=== PATIENT | female | born 1985 | race Hispanic/Latino ===

== ENCOUNTER 2018-07-01 08:15 | Observation (INO) | payer OTHER ==
[2018-06-24 19:17] VITALS: BMI 22.2
[2018-07-01] MEDS ORDERED: Lactated Ringer's 1,000 ML IV ONE ×5 (09:10→15:00)
[2018-07-01 10:38] LABS: BASO % 0.8 % (0.0-2.0); EOS # 0.1 K/uL (0.0-0.7); EOS % 1.4 % (0.0-4.0); HEMOGLOBIN 10.2 g/dL (12.0-16.0); LYMPH # 1.3 K/uL (1.0-4.3); LYMPH % 22.5 % (20.0-40.0); MEAN CELL VOLUME 98.4 fl (81.0-99.0); MEAN CORPUSCULAR HEMOGLOBIN 33.3 pg (27.0-31.0); MEAN CORPUSCULAR HGB CONC 33.9 g/dL (33.0-37.0); MEAN PLATELET VOLUME 10.8 fl (7.2-11.7); MONO # 0.4 K/uL (0.0-0.8); MONO % 6.7 % (0.0-10.0); NEUT # 3.9 K/uL (1.8-7.0); NEUT % 68.6 % (50.0-75.0); RBC 3.06 Mil/uL (3.80-5.20); RED CELL DISTRIBUTION WIDTH 12.5 % (11.5-14.5); WHITE BLOOD COUNT 5.8 K/uL (4.8-10.8)
[2018-07-01] MEDS ORDERED: Rocuronium 10 mg/ml (5 ml) ONE (10:48)
[2018-07-01] MEDS ORDERED: Midazolam 2 MG/2 ML VIAL ONE (10:48)
[2018-07-01] MEDS ORDERED: Propofol 10 mg/ml Inj (20 ML) ONE (10:48)
[2018-07-01] MEDS ORDERED: ePHEDrine 50 mg/ml Inj ONE (10:49)
[2018-07-01] MEDS ORDERED: Succinylcholine Chloride 20 mg/ml Syr (5 ml) IV ONE (10:49)
[2018-07-01] MEDS: Bupivacaine 0.5% Inj(30mL) ONE ×2 (11:35→11:45)
[2018-07-01] MEDS ORDERED: Dexamethasone 4 mg/1 ml ONE (13:28)
[2018-07-01] MEDS ORDERED: Neostigmine 1:1000 (1 mg/ml) Inj ONE (13:28)
[2018-07-01] MEDS ORDERED: Oxycodone/Acetaminophen 5/325 mg Tab PO PRN (13:49)
[2018-07-01] MEDS ORDERED: DiphenhydrAMINE 50 mg/ml Inj IVP PRN (13:51)
[2018-07-01] MEDS ORDERED: Droperidol 2.5 mg/ml Inj IVP PRN (13:51)
[2018-07-01] MEDS ORDERED: HYDROmorphone 0.5 mg/0.5 ml ISec IVP PRN (13:57)
[2018-07-01] MEDS ORDERED: Lactated Ringer's 1,000 ML IV SCH (14:00)
[2018-07-01] MEDS: HYDROmorphone 0.5 mg/0.5 ml ISec IVP PRN ×3 (14:00→14:20)
--- NOTE | 2018-07-01 23:35 | OP ---
PROCEDURE DATE: 07/01/2018 SURGEON: Maurisio Garcia MD FORESTRY HUNTER: Randy Avila MD ANESTHESIOLOGIST: Dilma Franco MD TYPE OF ANESTHESIA: General endotracheal. PREOPERATIVE DIAGNOSES: 1. History of pelvic endometriosis. Stage 4 POSTOPERATIVE DIAGNOSES: 1. History of pelvic endometriosis. Stage 4 PROCEDURES PERFORMED: 1. Exam under anesthesia. 2. Video assisted hysteroscopy. 3. Cystoscopy. 4. Bilateral ureteral catheterization and injection of IC-Green dye. 5. Robotic da Jimmy operative laparoscopy. 6. Treatment of endometriosis. 7. Excision of endometriosis. 8. Bilateral ureterolysis. 9. Left ovariolysis. 10 Pelvic endometriosis 11.Rectal endometriosis COMPLICATIONS: None. SAMPLES SENT: Left Uterosacral l endometriosis. Left periureteral endometriosis. Right periureteral endometriosis. right, Rectal endometriosis, anterior. Anterior bladder right endometriosis Right round ligament LEft ovarian endometriosis Perisigmoid endometriosis left,, Rectal endometriosis, anterior. right tubal remnant right uterine artery endometriosis appendix INDICATION FOR THE PROCEDURE AND CONSENT: The patient had a long history of pelvic pain, dysmenorrhea, dyspareunia, abdominal pain, and bladder pain. The patient had been thoroughly evaluated and counseled regarding the pros and cons of the procedure, the reasonable alternatives, and possible complications. She understood and accepted the risks involved. Literature was provided to the patient. The patient was understanding and given her history and per surgical exam, she was at high risk in an average patient. She accepted all the risks involved, and all the questions had been answered to her satisfaction. FINDINGS OF SURGERY: Genitalia: Normal external genitalia, cervix without lesion and polyps. Hysteroscopy: Hysteroscopy shows a clear uterine cavity with no polyps or masses noticed. Cystoscopy: The cystoscopy was performed to rule out endometriosis and also any interstitial cystitis and also injury. The bladder was normal with no evidence of stone, trigonitis, or cystitis. A positive jet flow was identified in both ureters. Laparoscopy: The upper abdomen appeared to be normal. Gallbladder was normal. Liver edges appeared to be normal. Ascending colon and transverse were normal. There was evidence of adhesions, fibrosis, and endometriosis of the rectovaginal and pelvic sidewalls. The appendix appeared to be . Both fallopian tubes appeared to be patent, although there was evidence of inflammation on the serosal surface of both fallopian tubes, and there was slight conglutination of both fimbriated ends although they both appeared to be functional. There was also evidence of mild hydroureters. DESCRIPTION OF THE PROCEDURE: Initiation of the case: After adequate anesthesia was obtained, the patient was placed in the dorsal lithotomy position, and with extreme care, placement of the patient with hyperextension and hyperflexing of the hips. At this point, the patient was prepped and draped. The surgeon was gowned and gloved. A timeout was taken according to the hospital procedure and the procedure was started. At this point, we performed cystoscopy, bilateral ureteral catheterization. A cystoscope was inserted into the bladder under direct visualization and the bladder was visualized. The bladder was free of lesions and tumors. There was no evidence of interstitial cystitis, and there was only mild amount of trigonitis. At this point, both ureters were identified and appeared to be in their normal anatomical position. At this point, utilizing an open 5-Lao open-ended catheter, the left ureter was catheterized all the way to the distal ureter, and 5 mL of IC-Green was injected into this ureter. Similarly, the contralateral ureter was catheterized all the way to the distal ureter, and 5 mL of IC-Green was injected into the distal ureter. At this point, the stents were removed, and the cystoscope was removed, and the 16-Lao Rose was inserted into the bladder. At this point, we proceeded with a hysteroscopy. A speculum was placed into vagina, and the anterior lip of the cervix was grasped. The cervix was dilated, and a hysteroscope was inserted into the cavity. The cavity appeared to be of normal size with no evidence of polyps, cysts, adenomyosis, or fibroids. At this point, we proceeded with placement of a trocar and docking of the da Jimmy Xi robot. The surgeon was re-gowned and gloved, and open laparoscopy was performed by making incision in the umbilicus and the fascia was incised. The peritoneum was entered in a blunt fashion, and the cannula was inserted under direct visualization. The abdomen was insufflated, and under direct visualization, three additional ports were inserted in the left upper quadrant, left mid quadrant, and right upper quadrant. At this point, the da Jimmy Xi robot was brought into the field and docked, and the instruments were inserted under direct visualization. All this with extreme care not to injure the bowel or another area. As per dictation, the upper abdomen appeared to be normal with no evidence of any lesions. At this point, we proceeded with a left ureterolysis. The ureter appeared to be dilated and was clearly identified utilizing IC-Green fluorescent technology. Anesthesia was made in the peritoneum at the top of the pelvic brim, and the incision was then carried down all the way opening the peritoneum all the way down from the pelvic brim, all the way down to the ovarian fossa, extending the incision below the ovary. It was a progressive dissection where the ureter was progressively lateralized and peritoneum was medialized, thus freeing the ureter all the way down to the cross of the uterine vessels. After this was done, the ureter was freed and lateralized, and a larger peritoneum which had been opened, was excised, and sent to pathology. At this point, with the aid of very slow process, I was able to elevate the ovary and proceed with ovariolysis. At this point, we proceeded with a left ovariolysis. The left ovary was adherent to the posterior aspect of the uterus. It was gently dissected in a step by step way. It was peeled off, the ovarian fossa, andan area of extensive fibrosis and endometriosis was exposed. At this point, we proceeded with a right ureterolysis. The ureter was identified again utilizing fluorescent technology on the right hand side and retroperitoneal space was entered, and a full dissection was performed,entering the retroperitoneal space and dissecting the ureter, removing the ureter laterally and the peritoneum medially. A full dissection was performed all the way down to the ovarian fossa and the crossing of the uterine arteries. An area of peritoneum containing endometriosis was dissected and sent to Pathology. At this point, we proceeded with treatment of endometriosis and excision of endometriosis. On the left hand side, fibrosis, especially in the left ovarian fossa was excised. In a very progressive step by step fashion, we dissected off fibrosis containing endometriosis and freed up the whole area. The ureters which had been lateralized. Areas of fibrosis and endometriosis were also identified in the posterior cul-de-sac and in the rectovaginal space which was also affected with endometriosis and fibrosis. At this point, we proceeded with the excision of perirectal endometriosis. The rectovaginal area had significant fibrosis and additional endometriosis was dissected from the posterior aspect of the uterus, and the rectovaginal space was entered at the level of the peritoneal reflection. All this done making sure that no damage to the rectum was performed. At this point, endometriosis was also excised from the right uterosacral area which also was affected by fibrosis and endometriosis. At this point, it was checked for hemostasis and appeared to be excellent. Both fallopian tubes were in good condition and patent. At this point we proceeded with destruction of inflammatory areas utilizing the j-plasma energy device. At this point the console was handed over to Dr. Avila from General surgery who proceeded with excision of rectal endometriosis and appendectomy procedure. He will dictate that separately. After he was done we checked for hemostasis and organ integrity and all was normal. At this point, the da Jimmy Xi robot was removed. The abdomen was desufflated, and the incisions were closed in layers with 0 PDS for the fascia and 4-0 Monocryl for the skin. At the end of the procedure, all tips and instrument counts were correct. The patient tolerated the procedure well and was taken to the recovery room in excellent condition. Jose BRYSON, Maurisio HERNANDEZ
--- NOTE | 2018-07-01 23:47 | OP ---
OPERATIVE REPORT -Operative Report Date of Procedure: 07/01/2018 Surgeon: Randy Avila MD Coordinator Of Library Services: Maurisio Garcia MD Anesthesiologist: Dilma Franco MD Anesthesia: General Endo Pre-op Diagnosis: abdominal pain Post-op Diagnosis: same Operative Findings: as above Procedure/Operation Description: 1-Excision rectal endometriosis x3. 2- Appendectomy. Brief History: This 32 year old woman was already brought to the operating room by Dr. Garcia and intraoperative surgical consultation was requested for the appendix and intestinal involvement. Description of the Procedure: The patient was already brought to the operating room by Dr. Garcia (separate dictation). After taking control of the robotic console the rectal lesion was examined under videoscopy and with electrocautery the lesion was incised circumferentially with electrocautery and with blunt and sharp dissection was excise en-bloc and sent to pathology for analysis. The remaining 2 lesions of the rectum were excised in a similar manner, appropriately marked and sent to pathology as separate specimen. The appendix was retracted anteriorly and the mesentery was desiccated with electrocautery to the base. The base was looped with 3-0 vicryl and transected and sent to pathology separately. The operation was then turned back to Dr. Garcia (separate dictation). Estimated Blood Loss:__5 cc Complications: none Discharge & Condition: stable MTDD
[2018-07-02 06:29] LABS: HEMOGLOBIN 10.1 g/dL (12.0-16.0); MEAN CELL VOLUME 98.8 fl (81.0-99.0); MEAN CORPUSCULAR HEMOGLOBIN 33.1 pg (27.0-31.0); MEAN CORPUSCULAR HGB CONC 33.5 g/dL (33.0-37.0); RBC 3.05 Mil/uL (3.80-5.20); RED CELL DISTRIBUTION WIDTH 13.1 % (11.5-14.5); WHITE BLOOD COUNT 14.2 K/uL (4.8-10.8)
--- NOTE | 2018-07-02 09:07 | CP.PCM.PN ---
Subjective - Date & Time of Evaluation Date of Evaluation: 07/02/18 Time of Evaluation: 09:05 - Subjective Subjective: Patient states pain is controlled with medication. +void, OOB, madan PO, not passing gas yet. Denies CP/SOB/dizziness/n/v Objective - Vital Signs/Intake and Output Vital Signs (last 24 hours): Temp Pulse Resp BP Pulse Ox 99.4 F 79 20 119/75 100 07/02/18 05:00 07/02/18 05:00 07/02/18 05:00 07/02/18 05:00 07/02/18 05:00 - Medications Medications: Current Medications Alprazolam (Xanax) 0.25 mg PO Q8 PRN PRN Reason: Anxiety Stop: 07/08/18 13:55 Famotidine (Pepcid) 20 mg PO DAILY [facility] Last Admin: 07/02/18 08:50 Dose: 20 mg Ferrous Sulfate (Feosol) 325 mg PO DAILY [facility] Last Admin: 07/02/18 08:53 Dose: 325 mg Hydromorphone HCl (Dilaudid) 0.5 mg IVP Q5H PRN PRN Reason: Pain, severe (8-10) Lactated Ringer's (Lactated Ringer's) 1,000 mls @ 125 mls/hr IV .Q8H [facility] Last Admin: 07/02/18 00:47 Dose: 125 mls/hr Ondansetron HCl (Zofran Inj) 4 mg IVP Q6 PRN PRN Reason: Nausea/Vomiting Last Admin: 07/01/18 16:28 Dose: 4 mg Oxycodone/Acetaminophen (Percocet 5/325 Mg Tab) 1 tab PO Q4 PRN PRN Reason: Pain, moderate (4-7) Stop: 07/04/18 13:50 Last Admin: 07/01/18 19:14 Dose: 1 tab - Labs Labs: 07/02/18 05:28 - GI/Abdominal Exam GI & Abdominal Exam: Soft, Tenderness (mild, not distended) Assessment and Plan (1) Endometriosis Assessment & Plan: POD#1 s/p robotic assisted laparoscopic excision of endometriosis stable for d/c today rx per Dr. Garcia f/u 7-10 d call for appt cont activity as tolerated d/w Dr. Garcia, agrees with above Status: Acute
[2018-07-02 14:44] VITALS: BP 113/71; PULSE 73; RESP 19; TEMP 99.2; O2SAT 98
== END 2018-07-02 13:45 | disposition home or self-care (01) ==
LOC: H.OPSURG 08:15 → H.PEDS 13:49 → H.OPSURG 16:02
PROVIDERS: ADMIT Obstetrics & Gynecology Reproductive Endocrinology; ATTEND Obstetrics & Gynecology Reproductive Endocrinology
DX: N80.0 Endometriosis of uterus (principal); N80.1 Endometriosis of ovary; N80.3 Endometriosis of pelvic peritoneum; N80.5 Endometriosis of intestine; N73.6 Female pelvic peritoneal adhesions (postinfective)
CPT/HCPCS: 36415; 44970; 52005; 58563; 85025; 85027; 86850; 86900; 88304; 88305; C1729; G0378; J0690; J1100; J1170; J2001; J2250; J2405; J2704; J2710; J2765; J3010; J7030; J7120; S2900